=== PATIENT | female | born 1955 | race Caucasian/White ===

== ENCOUNTER 2016-07-06 16:56 | Emergency (ER) | payer BC ==
[~2016-07-06] VITALS: Ht 157.5 cm; Wt 65.0 kg
[~2016-07-06 16:56] MED LIST: ALBU8.5H3 INH; AZIT250T94 PO; LEVO25TA53 PO; LISI20TA11 PO
[2016-07-06 17:16] VITALS: Ht 157.5 cm; Wt 65.0 kg
[2016-07-06] MEDS ORDERED: BEN25 PO (18:27)
[2016-07-06] MEDS ORDERED: FAMO-18 PO (18:27)
[2016-07-06] MEDS ORDERED: HC30CR25 TOP (18:27)
[2016-07-06] MEDS ORDERED: PRED20TA PO (18:27)
--- NOTE | 2016-07-06 19:07 | ERD ---
ER Documentation Chief Complaint Date/Time DATE: 07/06/16 TIME: 19:04 Chief Complaint Complains OF GENERALIZED RASH HPI Patient is a 60-year-old female who presents to the ED with generalized body rash for 1 week. She states that she has had itchiness and erythema on her arms , legs, abdomen. She denies pain. Denies fever or chills. Denies change in hygiene. Denies change in soaps. Denies recent travel. She has never had this rash in the past. Denies shortness of breath, cough or difficulty breathing. Denies headache or dizziness. Denies lip swelling, tongue swelling or difficulty speaking. Denies leg pain or swelling. No other complaints. ROS All systems reviewed and are negative except as per history of present illness. Medications Home Meds Active Scripts Hydrocortisone* Topical (Hydrocortisone* Topical) 2.5%-28.3 Gm Cream..g., 1 APPLIC TOP BID, #2 TUB Prov:LYNN ZHENG PA-C 07/06/16 Famotidine* (Pepcid*) 20 Mg Tablet, 20 MG PO BID for 4 Days, TAB Prov:LYNN ZHENG PA-C 07/06/16 Diphenhydramine Hcl* (Benadryl*) 25 Mg Cap, 25 MG PO Q6, #30 CAP Prov:LYNN ZHENG PA-C 07/06/16 Prednisone* (Prednisone*) 20 Mg Tab, 40 MG PO DAILY for 4 Days, TAB Prov:LYNN ZHENG PA-C 07/06/16 Albuterol Sulfate* (Proair HFA*) 8.5 Gm Hfa.aer.ad, 2 PUFF INH Q4, #1 INHALER Prov:JIMENEZ DELANEY MD 10/24/15 Azithromycin* (Zithromax*) 250 Mg Tablet, 250 MG PO DAILY for 4 Days, TAB Prov:JIMENEZ DELANEY MD 10/24/15 Azithromycin* (Zithromax*) 250 Mg Tablet, 250 MG PO .ANATOLY DIRECTED, #6 TAB TAKE 500 MG (2 TABS) THE FIRST DAY THEN 250 MG (1 TAB) DAYS 2-5 Prov:JIMENEZ DELANEY MD 10/24/15 Reported Medications Levothyroxine Sodium* (Levothyroxine Sodium*) 25 Mcg Tablet, 25 MCG PO DAILY 12/06/10 Lisinopril* (Lisinopril*) 20 Mg Tablet, 20 MG PO DAILY 12/06/10 Allergies Allergies: Coded Allergies: Shellfish (Verified Allergy, Severe, 07/04/14) No Known Drug Allergies (Verified Allergy, Unknown, 07/04/14) PMhx/Soc History of Surgery: Yes () Anesthesia Reaction: No Hx Neurological Disorder: No Hx Respiratory Disorders: No Hx Cardiac Disorders: Yes (HTN) Hx Psychiatric Problems: No Hx Miscellaneous Medical Probl: Yes (HTN,THYROID DISORDER,HYPERCHOLESTEROLEMIA) Hx Alcohol Use: No Hx Substance Use: No Hx Tobacco Use: No Physical Exam Vitals Vital Signs Date Time Temp Pulse Resp B/P Pulse Ox O2 Delivery O2 Flow Rate FiO2 07/06/16 17:16 98.6 86 20 119/77 96 Physical Exam GENERAL: Well-developed, well-nourished female. Appears in no acute distress. ENT: Moist mucous membranes. No uvula deviation. No kissing tonsils. No exudates. NECK: Supple. No lymphadenopathy or thyromegaly. No meningismus. negative kernig. negative brudinski. LUNG: Clear to auscultation bilaterally. No rhonchi, wheezing, rales or coarse breath sounds. HEART: Regular rate and rhythm. No murmurs, rubs or gallops. ABDOMEN: No scars, ecchymosis. Soft, nontender, and nondistended. Positive bowel sounds in all four quadrants. No rebound tenderness, no guarding. (-) McBurneys point tenderness. No CVA tenderness. Erythematous rash on abdomen and back. No drainage or signs of infection BACK: No midline tenderness. Extremities: Equal pulses bilaterally. No peripheral clubbing, cyanosis or edema. No unilateral leg swelling. NEUROLOGIC: Alert and oriented. Moving all four extremities. 5/5 strength in all extremities. Normal speech. Steady gait. SKIN: Normal color. Warm and dry. Capillary refill < 2 seconds erythematous rash. No signs of infection or drainage. Nontender. Procedures/MDM ER COURSE: I kept the patient and/or family informed of laboratory and diagnostic imaging results throughout the emergency room course. MEDICAL DECISION MAKING: This is a 6-year-old female with a history of hypertension and hypothyroidism who presents with rash for 1 week. Vital signs were reviewed. Patient is afebrile. Patient is not hypoxic. Patient is not toxic or ill-appearing. Patient has rash of unknown etiology. Low suspicion for necrotizing fasciitis, SJS, toxic epidermal necrolysis, Kawasaki, erythema multiforme, gangrene, scarlet fever, meningococcemia, sepsis, anaphylaxis, deep space infection, or foreign body, cellulitis. Patient does not have shortness of breath, difficulty breathing, difficulty swallowing, tongue swelling or lip swelling. Patient speaking in full sentences and I have low suspicion for angioedema or anaphylaxis. DISCHARGE: At this time, patient is stable for discharge and outpatient management with no new complaints during the ER course. Patient was sent home with prednisone, hydrocortisone cream, Benadryl and Pepcid. Patient will be discharged home with instructions to recheck for new or worsening symptoms such as fever, nausea, weakness, LOC and to follow up with primary care in the next 1-2 days. Patient was advised to return to the ER for any new or worsening symptoms. Plan was discussed and patient and/or family understands and agrees. Home instructions were given. Departure Diagnosis: Primary Impression: Rash Condition: Stable Patient Instructions: Self-Care for Skin Rashes Additional Instructions: Llame al doctor MAANA y roselyn nikki ALPESH PARA DENTRO DE 1-2 SINGLETARY.Dgale a la secretaria que nosotros le instruimos hacer esta alpesh.Avise o llame si dockery condicin se empeora antes de la alpesh. Regresa aqui si peor o no mejor. LYNN ZHENG PA-C Jul 06, 2016 19:07
== END 2016-07-06 18:46 | disposition home or self-care (01) ==
LOC: E/R 16:56
DX: R21 Rash and other nonspecific skin eruption (principal); I10 Essential (primary) hypertension
CPT/HCPCS: 99283

== ENCOUNTER 2017-03-09 14:07 | Emergency (ER) | payer BC ==
[~2017-03-09] VITALS: Ht 165.1 cm; Wt 51.0 kg
[~2017-03-09 14:07] MED LIST changes: +BEN25 PO; +FAMO-96 PO; +HC30CR25 TOP; +PRED20TA PO
[2017-03-09 14:11] VITALS: Ht 165.1 cm; Wt 51.0 kg
[2017-03-09] MEDS ORDERED: ASPIRIN 81 MG TAB PO ONE (15:00)
[2017-03-09 15:12] LABS: BASOPHIL # 0.1 10^3/ul (0.0-0.1); EOSINOPHILS # 1.3 10^3/ul (0.0-0.5); EOSINOPHILS % 11.1 % (0.0-7.0); HEMOGLOBIN 12.9 g/dl (12.0-16.0); LYMPHOCYTES # 3.4 10^3/ul (0.8-2.9); MEAN CORPUSCULAR HEMOGLOBIN 29.6 pg (29.0-33.0); MEAN CORPUSCULAR HGB CONC 33.9 g/dl (32.0-37.0); MEAN CORPUSCULAR VOLUME 87.2 fl (82.0-101.0); MEAN PLATELET VOLUME 10.6 fl (7.4-10.4); MONOCYTE # 0.7 10^3/ul (0.3-0.9); MONOCYTES % 6.3 % (0.0-11.0); NEUTROPHIL # 5.8 10^3/ul (1.6-7.5); NEUTROPHILS % 51.3 % (39.0-77.0); PLATELET COUNT 304 10^3/UL (140-415); RED BLOOD COUNT 4.36 10^6/ul (4.20-5.40); RED CELL DISTRIBUTION WIDTH 13.6 % (11.5-14.5); WHITE BLOOD COUNT 11.4 10^3/ul (4.8-10.8)
--- NOTE | 2017-03-09 15:18 | RADRPT ---
PROCEDURE: XR Chest 1 View. CLINICAL INDICATION: Chest pain. TECHNIQUE: AP view of the chest was obtained. COMPARISON: CR CHEST 10/24/2015 FINDINGS: The cardiomediastinal silhouette is within normal limits. Scattered subsegmental atelectasis is note d in both lungs. A subtle 8 mm nodular density is identified in the right upper lobe. No consolidati ons are identified. No pneumothorax is seen. Osseous structures are intact. IMPRESSION: Subtle 8 mm nodular density in the right upper lobe. Finding could reflect a lung nodule. Further ch aracterization with CT chest is recommended. Scattered atelectasis in both lungs. RPTAT: AA .Yovanny Joyner MD, Date Time Electronically viewed and signed by .Yovanny Joyner MD, MD on 03/09/2017 15:17 .P/
[2017-03-09 15:37] LABS: ANION GAP 15 (8-16); BLOOD UREA NITROGEN 17 mg/dl (7-20); CALCIUM 9.3 mg/dl (8.4-10.2); CARBON DIOXIDE 26 mmol/L (21-31); CHLORIDE 106 mmol/L (97-110); CREATININE 0.87 mg/dl (0.44-1.00); GLUCOSE 102 mg/dl (70-220); SODIUM 143 mmol/L (135-144)
[2017-03-09 15:49] LABS: B-TYPE NATRIURETIC PEPTIDE 25 PG/ML (0-125); TROPONIN-I < 0.012 ng/ml (0.00-0.12)
[2017-03-09] MEDS ORDERED: SOD CHLORIDE 0.9% 500 ML IV ONE (18:30)
[2017-03-09] MEDS ORDERED: IOHEXOL 300MG/ML 150 ML BTL ONE (18:33)
[2017-03-09] MEDS ORDERED: SOD CHLORIDE 0.9% 100 ML ONE (18:33)
--- NOTE | 2017-03-09 20:07 | ERD ---
ER Documentation Chief Complaint Date/Time DATE: 03/09/17 TIME: 19:57 Chief Complaint Complains of back and chest wall pain x 2 days HPI 61-year-old female came in after going to a clinic and being told that she has water on her lungs and should go to the ER. She has anterior chest wall pain bilaterally anterior rib cage and lower ribs as well as mild occasional coughing going on for 4 years. Been a little worse recently. Pain is worse when she takes a deep breath. No nausea or vomiting. No fever chills. Pain is described as a ache. She had just seen her primary care doctor who discharged her with albuterol inhaler and azithromycin, she finished a course of this and stated that neither of these medications had any effect on her whatsoever. Negative for PE risk factors. ROS All systems reviewed and are negative except as per history of present illness. Medications Home Meds Active Scripts Naproxen* (Naproxen*) 500 Mg Tablet, 500 MG PO BID Y for PAIN, #14 TAB Prov:CASSIE PALACIO DO 03/09/17 Prednisone* (Prednisone*) 20 Mg Tab, 40 MG PO DAILY for 5 Days, TAB Prov:CASSIE PALACIO DO 03/09/17 Hydrocortisone* Topical (Hydrocortisone* Topical) 2.5%-28.3 Gm Cream..g., 1 APPLIC TOP BID, #2 TUB Prov:LYNN ZHENG PA-C 07/06/16 Famotidine* (Pepcid*) 20 Mg Tablet, 20 MG PO BID for 4 Days, TAB Prov:LYNN ZHENGC 07/06/16 Diphenhydramine Hcl* (Benadryl*) 25 Mg Cap, 25 MG PO Q6, #30 CAP Prov:LYNN ZHENG-C 07/06/16 Prednisone* (Prednisone*) 20 Mg Tab, 40 MG PO DAILY for 4 Days, TAB Prov:LYNN ZHENGC 07/06/16 Albuterol Sulfate* (Proair HFA*) 8.5 Gm Hfa.aer.ad, 2 PUFF INH Q4, #1 INHALER Prov:JIMENEZ DELANEY MD 10/24/15 Azithromycin* (Zithromax*) 250 Mg Tablet, 250 MG PO DAILY for 4 Days, TAB Prov:JIMENEZ DELANEY MD 10/24/15 Azithromycin* (Zithromax*) 250 Mg Tablet, 250 MG PO .ZPACK DIRECTED, #6 TAB TAKE 500 MG (2 TABS) THE FIRST DAY THEN 250 MG (1 TAB) DAYS 2-5 Prov:JIMENEZ DELANEY MD 10/24/15 Reported Medications Levothyroxine Sodium* (Levothyroxine Sodium*) 25 Mcg Tablet, 25 MCG PO DAILY 12/06/10 Lisinopril* (Lisinopril*) 20 Mg Tablet, 20 MG PO DAILY 12/06/10 Allergies Allergies: Coded Allergies: Shellfish (Verified Allergy, Severe, 07/04/14) No Known Drug Allergies (Verified Allergy, Unknown, 07/04/14) PMhx/Soc History of Surgery: Yes () Anesthesia Reaction: No Hx Neurological Disorder: No Hx Respiratory Disorders: No Hx Cardiac Disorders: Yes (HTN) Hx Psychiatric Problems: No Hx Miscellaneous Medical Probl: Yes (HTN,THYROID DISORDER,HYPERCHOLESTEROLEMIA) Hx Alcohol Use: No Hx Substance Use: No Hx Tobacco Use: No Smoking Status: Never smoker Physical Exam Vitals Vital Signs Date Time Temp Pulse Resp B/P Pulse Ox O2 Delivery O2 Flow Rate FiO2 03/09/17 19:04 59 17 101/75 100 Nasal Cannula 2.0 03/09/17 17:30 60 17 110/70 99 Nasal Cannula 03/09/17 15:22 70 24 132/93 95 Nasal Cannula 2.0 03/09/17 14:11 98.9 89 20 110/68 98 Physical Exam Const: [] Mild distress Head: Atraumatic Eyes: Normal Conjunctiva ENT: Normal External Ears, Nose and Mouth. Neck: Full range of motion..~No JVD. Resp: Decreased bibasilar breath sounds Cardio: Regular rate and rhythm, no murmurs Abd: Soft, non tender, non distended. Normal bowel sounds Skin: No petechiae or rashes Back: No midline or flank tenderness Ext: No cyanosis, or edema Neur: Awake and alert and oriented 3, no focal deficits Psych: Normal Mood and Affect Result Diagram: 03/09/17 1500 03/09/17 1500 Results 24 hrs Laboratory Tests Test 03/09/17 14:32 03/09/17 15:00 Bedside Glucose 105mg/dL White Blood Count 11.410^3/ul Red Blood Count 4.3610^6/ul Hemoglobin 12.9g/dl Hematocrit 38.0% Mean Corpuscular Volume 87.2fl Mean Corpuscular Hemoglobin 29.6pg Mean Corpuscular Hemoglobin Concent 33.9g/dl Red Cell Distribution Width 13.6% Platelet Count 01674^3/UL Mean Platelet Volume 10.6fl Neutrophils % 51.3% Lymphocytes % 30.0% Monocytes % 6.3% Eosinophils % 11.1% Basophils % 1.0% Nucleated Red Blood Cells % 0.0/100WBC Neutrophils # 5.810^3/ul Lymphocytes # 3.410^3/ul Monocytes # 0.710^3/ul Eosinophils # 1.310^3/ul Basophils # 0.110^3/ul Nucleated Red Blood Cells # 0.010^3/ul Sodium Level 143mmol/L Potassium Level 4.0mmol/L Chloride Level 106mmol/L Carbon Dioxide Level 26mmol/L Anion Gap 15 Blood Urea Nitrogen 17mg/dl Creatinine 0.87mg/dl Glucose Level 102mg/dl Calcium Level 9.3mg/dl Troponin I < 0.012ng/ml B-Type Natriuretic Peptide 25PG/ML Current Medications Medications (Trade) Dose Ordered Sig/April Route PRN Reason Start Time Stop Time Status Last Admin Dose Admin Aspirin 324 mg 324 mg ONCE ONCE PO 03/09/17 15:00 03/09/17 15:01 DC 03/09/17 15:22 Sodium Chloride 500 ml @ 500 mls/hr Q1H ONCE IV 03/09/17 18:30 03/09/17 19:29 DC 03/09/17 18:57 Sodium Chloride (NS) 100 ml @ ud STK-MED ONCE .ROUTE 03/09/17 18:33 03/09/17 18:34 DC 03/09/17 18:46 Iohexol (Omnipaque 300mg/ ml) 150 ml STK-MED ONCE .ROUTE 03/09/17 18:33 03/09/17 18:34 DC 03/09/17 18:46 Procedures/MDM 81-year-old female with chronic chest pain and dyspnea getting worse. No evidence of cardiac ischemia or infection. Multiple trials of medication for bronchitis and failed in the patient. CT with contrast is obtained to evaluate lungs for unexplained symptoms based on several chest x-ray and laboratories. Patient does have diffuse groundglass opacities with a possible diagnosis based on these findings. But she would benefit from most his tank truck driver visit with bronchoscopy. Is in completely stable condition with stable vital signs. Going to discharge her with instructions to call her primary care office to get an appointment for a tank truck driver and schedule a bronchoscopy. Discharge her with a short 5 day trial of prednisone. I am also giving her naproxen for her pain with cough. EKG interpretation: Normal sinus rhythm, normal axis, normal intervals, rate of 90, no ST or T-wave changes concerning for acute ischemia, normal EKG. Monitor interpretation: Normal sinus rhythm without arrhythmias X-ray interpretation: I see no acute process. I see no pulmonary edema, no obvious infiltrates, no pneumothorax, no fractures. There is a lung nodule present in the upper lung. CT chest with contrast interpretation: Diffuse groundglass opacities with lymphadenopathy. This finding is nonspecific could represent several different conditions. I see no other acute process, no infiltrates, no pulmonary edema, no fractures per Departure Diagnosis: Primary Impression: Chest pain Additional Impression: Ground glass opacity present on imaging of lung Condition: Stable CASSIE PALACIO DO Mar 09, 2017 20:07
--- NOTE | 2017-03-09 20:12 | RADRPT ---
PROCEDURE: CT CHEST WITH CONTRAST CLINICAL INDICATION: 61 years of age, female. Chest wall pain and cough for 4 years . TECHNIQUE: CT of the chest was performed following administration of 90 mL IV Omnipaque-300. Flanagan l and sagittal reformatted images were obtained from the axial source images. Images were reviewed o n a high-resolution PACS workstation. Dose information: The estimated radiation dose (CTDIvol mGy for each series in this exam is 10.7 . T he estimated cumulative dose (DLP mGy-cm) is 394 . One or more of the following dose reduction techniques were used: - Automated exposure control. - Adjustment of the mA and/or kV according to patient size. - Use of iterative reconstruction technique. COMPARISON: None available. FINDINGS: CHEST: Medical devices: None. Thyroid: Normal. Lymph nodes: There are mildly enlarged mediastinal and bilateral hilar lymph nodes. Several lymph no claire are as follows: Right paratracheal (3/35): 1 cm Prevascular (3/36): 0.7 cm Right hilar (3/47): 0.7 cm Left hilar (3/49): 0.9 cm Vasculature: Aorta and main pulmonary artery diameters are within normal range. Negative for evidenc e of central PE. Two-vessel aortic arch. Heart: Normal. No pericardial effusion. Other mediastinal structures: Normal. Lung parenchyma and pleura: There is nonspecific mosaic attenuation in the lung parenchyma that may be due to heterogeneous diffuse ground-glass opacity or air trapping from small airways disease. The re is a 0.5 cm pulmonary nodule in the anterior right upper lobe (3/46) and a 0.3 cm pulmonary nodul e in the right middle lobe (3/56). There are multiple tiny pleural based nodules (for example series 3 image 30 and series 3 image 24). Airways: Normal. Chest wall: Normal. Upper abdomen: No significant abnormality. Musculoskeletal: No suspicious bone lesions. IMPRESSION: 1. Nonspecific heterogeneous ground-glass opacity in the lung parenchyma may be due to inflammation versus air trapping from small airways disease. Inflammatory causes include, but are not limited to , interstitial pneumonia or extrinsic allergic alveolitis. This could better be evaluated with high- resolution CT with inspiratory and expiratory views. 2. Nonspecific mediastinal and bilateral hilar lymphadenopathy with small subpleural nodules in randall ateral lungs. Differential diagnosis includes, but is not limited to, reactive lymphadenopathy from systemic infection, sarcoidosis, lymphoma or metastatic disease. 3. Two small right pulmonary nodules measuring up to 0.5 cm. In the absence of risk factors, no fu rther imaging is required per 2017 Fleischner Society guidelines. In a high risk patient, follow-up low-dose chest CT at 12 months is optional. Findings were discussed with Dr Ricky Noel by Dr. Trini Medina on March 09, 2017 at 08:05 p.m.. Pulmonology consultation is advised. RPTAT: HCTS Physician Horace Date Time Electronically viewed and signed by Leonor Medina Physician on 03/09/2017 20:11 CS/
[2017-03-09] MEDS ORDERED: PRED20TA PO (20:23)
[2017-03-09] MEDS ORDERED: NAPR-688 PO (20:23)
[2017-03-09 20:56] VITALS: BP 128/68; PULSE 135; RESP 17
== END 2017-03-09 20:56 | disposition home or self-care (01) ==
LOC: E/R 14:07
DX: R07.89 Other chest pain (principal); R91.8 Other nonspecific abnormal finding of lung field; I10 Essential (primary) hypertension
CPT/HCPCS: 36415; 71010; 71260; 80048; 82962; 83880; 84484; 85025; J7040; Q9967; Z7502; Z7610; 93005

== ENCOUNTER 2018-01-06 01:41 | Emergency (ER) | END 2018-01-06 05:44 | disposition home or self-care (01) ==

== ENCOUNTER 2018-10-26 11:10 | Emergency (ER) | payer BC ==
[~2018-10-26] VITALS: Wt 75.0 kg
[~2018-10-26 11:10] MED LIST changes: -ALBU8.5H3 INH; +ALBU8.5H8 INH; +AZIT250T PO; -AZIT250T94 PO; -LEVO25TA53 PO; +LEVO25TA6 PO; +LISI-471 PO; -LISI20TA11 PO; +NAPR-688 PO; +TRAM50TA2 PO
[2018-10-26 11:14] VITALS: BP 139/84
[2018-10-26] MEDS ORDERED: DEXAMETHASONE 10 MG/ML 1 ML INJ IM STA (11:48)
[2018-10-26] MEDS ORDERED: IPRATROPIUM (NEB) 0.5 MG/2.5 ML AMP NEB STA (11:48)
[2018-10-26] MEDS ORDERED: ALBUTEROL 0.083% (NEB) 2.5 MG/3 ML AMP NEB STA (11:48)
[2018-10-26] MEDS ORDERED: PRED20TA PO (12:47)
[2018-10-26] MEDS ORDERED: AZIT250T PO (12:47)
[2018-10-26 13:00] VITALS: PULSE 78; RESP 20
--- NOTE | 2018-10-26 16:36 | ERD ---
ER Documentation Chief Complaint Chief Complaint cough x 10 days HPI 62-year-old Georgian-speaking female with history of asthma and allergies who presents to the ED complaining of a productive cough x10 days. She was seen by her primary care provider who has given her prescription for promethazine syrup as well as a Ventolin inhaler. Patient states these have temporarily been improving her symptoms. She reports associated chest pain and some shortness of breath. Denies any wheezing. Denies any nausea or vomiting. Denies any abdominal pain. Denies any other symptoms. ROS All systems reviewed and are negative except as per history of present illness. Medications Home Meds Active Scripts Prednisone* (Prednisone*) 20 Mg Tab, 40 MG PO DAILY for 4 Days, TAB Prov:GABEIGRMARCOS LEMON PA-C 10/26/18 Azithromycin* (Zithromax*) 250 Mg Tablet, 250 MG PO .ZPACK DIRECTED, #6 TAB TAKE 500 MG (2 TABS) THE FIRST DAY THEN 250 MG (1 TAB) DAYS 2-5 Prov:MARCOS YORK-C 10/26/18 Tramadol HCl (Tramadol HCl) 50 Mg Tablet, 50 MG PO Q6 PRN for PAIN, #15 TAB Prov:CARL AIKEN MD 01/06/18 Naproxen* (Naproxen*) 500 Mg Tablet, 500 MG PO BID PRN for PAIN, #14 TAB Prov:CASSIE PALACIO DO 03/09/17 Prednisone* (Prednisone*) 20 Mg Tab, 40 MG PO DAILY for 5 Days, TAB Prov:CASSIE PALACIO DO 03/09/17 Hydrocortisone* Topical (Hydrocortisone* Topical) 2.5%-28.3 Gm Cream..g., 1 APPLIC TOP BID, #2 TUB Prov:LYNN ZHENGC 07/06/16 Famotidine* (Pepcid*) 20 Mg Tablet, 20 MG PO BID for 4 Days, TAB Prov:LYNN ZHENG-C 07/06/16 Diphenhydramine Hcl* (Benadryl*) 25 Mg Cap, 25 MG PO Q6, #30 CAP Prov:LYNN ZHENG-C 07/06/16 Prednisone* (Prednisone*) 20 Mg Tab, 40 MG PO DAILY for 4 Days, TAB Prov:LYNN ZHENG PA-C 07/06/16 Albuterol Sulfate* (Proair HFA*) 8.5 Gm Hfa.aer.ad, 2 PUFF INH Q4, #1 INHALER Prov:JIMENEZ DELANEY MD 10/24/15 Azithromycin* (Zithromax*) 250 Mg Tablet, 250 MG PO DAILY for 4 Days, TAB Prov:JIMENEZ DELANEY MD 10/24/15 Azithromycin* (Zithromax*) 250 Mg Tablet, 250 MG PO .ZPACK DIRECTED, #6 TAB TAKE 500 MG (2 TABS) THE FIRST DAY THEN 250 MG (1 TAB) DAYS 2-5 Prov:JIMENEZ DELANEY MD 10/24/15 Reported Medications Levothyroxine Sodium* (Levothyroxine Sodium*) 25 Mcg Tablet, 25 MCG PO DAILY 12/06/10 Lisinopril* (Lisinopril*) 20 Mg Tablet, 20 MG PO DAILY 12/06/10 Allergies Allergies: Coded Allergies: Shellfish (Verified Allergy, Severe, 07/04/14) No Known Drug Allergies (Verified Allergy, Unknown, 07/04/14) PMhx/Soc History of Surgery: Yes (C-SECTIONx 2, total abdominal hysterectomy October 2017) Anesthesia Reaction: No Hx Neurological Disorder: No Hx Respiratory Disorders: No Hx Cardiac Disorders: Yes (HTN) Hx Psychiatric Problems: No Hx Miscellaneous Medical Probl: Yes (HTN,THYROID DISORDER,HYPERCHOLESTEROLEMIA) Hx Alcohol Use: No Hx Substance Use: No Hx Tobacco Use: No Smoking Status: Never smoker Physical Exam Vitals Vital Signs Date Temp Pulse Resp B/P (MAP) Pulse Ox O2 O2 Flow FiO2 Time Delivery Rate 10/26/18 78 20 95 Room Air 13:00 10/26/18 78 17 96 21 12:21 10/26/18 97.8 78 18 139/84 95 11:14 (102) Physical Exam Const: No acute distress Head: Atraumatic Eyes: Normal Conjunctiva. EOMI. PERRL. ENT: Normal External Ears, Nose and Mouth. + Mild posterior OP erythema. No tonsillar edema or exudates. Neck: Full range of motion. No meningismus. + Cervical LAD Resp: + Mild expiratory wheezing throughout, crackles diffusely. Good tidal volume. Cardio: Regular rate and rhythm, no murmurs Skin: No petechiae or rashes Ext: No cyanosis, or edema Neur: Awake and alert Psych: Normal Mood and Affect Results 24 hrs Current Medications Medications Dose Sig/April Start Time Status Last (Trade) Ordered Route PRN Stop Time Admin Dose Reason Admin Albuterol 5 mg ONCE STAT 10/26/18 DC 10/26/18 (Proventil NEB 11:48 10/26/18 12:21 0.083% (Neb)) 11:51 Ipratropium 0.5 mg ONCE STAT 10/26/18 DC 10/26/18 [place] NEB 11:48 10/26/18 12:20 (Atrovent 11:51 0.02% (Neb)) 10 mg ONCE STAT 10/26/18 DC 10/26/18 Dexamethasone IM 11:48 10/26/18 12:08 (Decadron) 11:51 Procedures/MDM LABS & DIAGNOSTIC IMAGING: PROCEDURE: XR chest. CLINICAL INDICATION: Asthma exacerbation TECHNIQUE: A single portable view of the chest was obtained. COMPARISON: 03/09/2017 FINDINGS: There is no focal consolidation, pleural effusion, or pneumothorax. The cardiac and mediastinal contours are within normal limits. IMPRESSION: 1. No acute pulmonary abnormality. ED PROCEDURES: 12-lead EKG interpretation as interpeted by Dr. Delaney Normal Sinus Rhythm with ventricular rate of 69 beats per minute Normal axis Normal intervals No acute ST or T wave changes suggestive of acute ischemia or STEMI. ED COURSE: The patient was given 1 DuoNeb treatment The medication was well tolerated and the patient had market improvement in symptoms. The patient remained stable throughout ED course. MEDICAL DECISION MAKIN-year-old female with history of asthma presents with a cough. She is af ebrile here. No hypoxia. Vital signs are stable. Chest x-ray is negative for pneumonia. EKG is unremarkable. Have low suspicion for IA, ACS, CVA, or any other emergent cardiac pathology. Repeat lung sounds improved status post 1 DuoNeb treatment. Given patient's history, age and duration of symptoms, will treat for acute bacterial bronchitis. Patient already has promethazine and albuterol inhaler at home. Given Rx azithromycin, as well as prednisone to take for the next 3 days. Recommended follow-up with her PCP sometime this week. Strict return precautions were discussed. PRESCRIPTIONS: Azithromycin, prednisone SPECIALIST FOLLOW UP RECOMMENDED: None Patient has been advised to follow up with primary care in 1-2 days. Departure Diagnosis: Primary Impression: Bronchitis Condition: Stable Patient Instructions: Bronchitis With Wheezing (Child) Referrals: YANA HENAO (PCP) Additional Instructions: Continue taking your cough syrup 2 times a day, you can also use the inhaler as needed for shortness of breath. I am also prescribing you antibiotics and prednisone to take. Follow-up with your regular doctor in 1 week. Return here for any new or worsening symptoms. MARCOS YORK PA-C Oct 26, 2018 16:36
== END 2018-10-26 13:09 | disposition home or self-care (01) ==
LOC: FTE 11:10
DX: J40 Bronchitis, not specified as acute or chronic (principal); I10 Essential (primary) hypertension
CPT/HCPCS: 71045; 93005; 94664; 96372; J1100; Z7502; Z7610